=== PATIENT | female | born 1940 | race Caucasian/White ===

== ENCOUNTER 2017-04-28 18:48 | Emergency (ER) | payer MEDICARE ==
[~2017-04-28] VITALS: Ht 170.2 cm; Wt 81.6 kg
[2017-04-28] MEDS ORDERED: oxyCODONE HCL/Acetaminophen 5/325mg ORAL ONE (19:00)
--- NOTE | 2017-04-28 19:23 | Emergency Room Report ---
History of Present Illness General Chief Complaint: Upper Extremity Injury Source: Patient, EMS Present Illness HPI [id number] BIBEMS with fall 3.5ft onto right upper arm. Pain from "elbow and up" but denies shoudler pain, reduced ROM at right shoulder Denies pain to right hand, wrist, forearm (Holding right arm to chest, bent at elbow and elevated) Denies hitting head, LOC On ASA, Plavxi for previous 2x stent Allergies: Coded Allergies: SULFA (SULFONAMIDE ANTIBIOTICS) (Verified Allergy, Unknown, 04/28/17) Patient History Past Medical History: none Past Surgical History: none Pertinent Family History: none Social History: Denies: smoking, alcohol use, drug use Last Menstrual Period: N/A Now: No Immunizations: UTD Reviewed Nursing Documentation: PMH: Agreed, PSxH: Agreed Nursing Documentation-PMH Hx Cardiac Problems: Yes - 2 STENTS, ARTHRITIS Hx Hypertension: Yes Review of Systems All Other Systems: negative except mentioned in HPI Physical Exam Vital Signs Date Time Temp Pulse Resp B/P (MAP) Pulse Ox O2 Delivery O2 Flow Rate FiO2 04/28/17 18:48 97.9 63 16 179/92 97 Sp02 EP Interpretation: reviewed, normal General Appearance: normal inspection, well appearing, no apparent distress, alert, GCS 15, non-toxic Head: normocephalic, atraumatic Eyes: bilateral eye PERRL, bilateral eye EOMI ENT: normal ENT inspection, hearing grossly normal, normal voice Neck: normal inspection, full range of motion, supple, no bony tend Respiratory: normal inspection, lungs clear, normal breath sounds, no respiratory distress, no retraction, no wheezing Cardiovascular #1: regular rate, rhythm, no edema Gastrointestinal: normal inspection, normal bowel sounds, non tender, soft, no guarding, no hernia Genitourinary: no CVA tenderness Musculoskeletal: other - Right arm: no obvious shoulder deformity; ROM intact. Mild ttp to right proximal humerus and right elbow; abrasion to right elbow. No ttp or deformity to right forearm, wrist, hand Neurologic: alert, oriented x3, responsive, medical science liaison III-XII nml as tested Psychiatric: normal inspection, judgement/insight normal, mood/affect normal Skin: normal inspection, normal color, no rash Lymphatic: normal inspection Medical Decision Making Diagnostic Impression: Primary Impression: Humeral head fracture Qualified Codes: S42.291A - Other displaced fracture of upper end of right humerus, initial encounter for closed fracture Additional Impression: Fx humeral neck Qualified Codes: S42.211A - Unspecified displaced fracture of surgical neck of right humerus, initial encounter for closed fracture ER Course Non-displaced fx of humeral head and neck right side (read by STAT RAD) non-displaced Sling placed/given Analgesia provided Rx T#3 Ortho followup outpatient DC home Last Vital Signs Date Time Temp Pulse Resp B/P (MAP) Pulse Ox O2 Delivery O2 Flow Rate FiO2 04/28/17 18:48 97.9 63 16 179/92 97 Status: improved Disposition: HOME, SELF-CARE Scripts Acetaminophen With Codeine (T#3) (TYLENOL #3 TAB*) Y Tab 1 TAB ORAL Q8H Y for For Pain for 7 Days, #30 TAB Prov: JESUS HOBBS M.D. 04/28/17 JESUS HOBBS M.D. Apr 28, 2017 19:23
[2017-04-28 19:31] VITALS: BP 179/92
[2017-04-28] MEDS ORDERED: ACETAMINOPHEN-1 EAC1 ORAL (20:31)
[2017-04-28 20:40] VITALS: BP 145/84
[2017-04-28 20:43] VITALS: BP 134/80
[2017-04-28 21:13] VITALS: BP 145/82
--- NOTE | 2017-04-29 09:06 | Diagnostic Imaging Report ---
Indication: PAIN, trauma Technique: XRAY SHOULDER MIN 3V RIGHT Comparison: None. Findings: There is fracture of the greater tuberosity. There also appears to be fracture of the humeral neck. The bones are osteopenic. There is mild comminution. Impression: Fractures of the humeral head and neck, nondisplaced. Osteopenia. The above report is concordant with preliminary reading by Bryanna .
--- NOTE | 2017-04-29 09:09 | Diagnostic Imaging Report ---
Indication: PAIN Technique: XRAY ELBOW MIN 3 VIEWS RIGHT Comparison: None. Findings: Positioning is suboptimal due to pain. The osseous structures are intact. There is no fracture or destruction. The visualized joints are normal. The soft tissues are unremarkable. The bones are osteopenic. Impression: Osteopenia. No acute abnormality.
--- NOTE | 2017-04-29 09:10 | Diagnostic Imaging Report ---
Indication: PAIN Technique: XRAY HUMERUS 2V RIGHT Comparison: None. Findings: The bones are osteopenic. There is fracture of the humeral head and neck. The remainder the bones are intact. Impression: Osteopenia. Fracture of the humeral head and neck.
== END 2017-04-28 20:46 | disposition home or self-care (01) ==
LOC: EDBD 18:48 → EMR 19:20
DX: S42.254A Nondisplaced fracture of greater tuberosity of right humerus, initial encounter for closed fracture (principal); S42.294A Other nondisplaced fracture of upper end of right humerus, initial encounter for closed fracture; W19.XXXA Unspecified fall, initial encounter; Y92.89 Other specified places as the place of occurrence of the external cause; I10 Essential (primary) hypertension; M85.821 Other specified disorders of bone density and structure, right upper arm; Z88.2 Allergy status to sulfonamides
CPT/HCPCS: 29240; 99283